=== PATIENT | male | born 1960 | race Caucasian/White ===

== ENCOUNTER 2016-06-04 08:04 | Outpatient (CLI) | payer MEDICARE, OTHER ==
--- NOTE | 2016-06-04 14:00 | Diagnostic Imaging Report ---
MARIAJOSE LAI [facility] [address] [facility] [address] [address] Report Submission Date: Jun 04, 2016 9:02:16 AM CDT Patient Study Name: YVES ROCK Date: Jun 04, 2016 8:19:11 AM CDT Modality Type: US Gender: M Description: UNILAT LTD STDY EXT VEINS : 56 Institution: [facility] Physician: MARIAJOSE LAI Venous ultrasound right lower extremity History: RIGHT LOWER EXTREMITY SWELLING AND REDNESS X 1 WEEK Multiple grayscale and color Doppler images of the right lower extremity veins are submitted Findings: No comparison studies Flow is demonstrated in the right external iliac, right common femoral, saphenous vein, deep femoral vein, femoral vein in its proximal, mid and distal aspects. Veins demonstrate compressibility. The right popliteal vein is compressible and demonstrates flow. Significant edema is noted in the soft tissues of the right calf. Flow was demonstrated in the right posterior tibial vein. Right lesser saphenous vein is also compressible and demonstrates flow. Significant soft tissue swelling and edema right posterior calf. Impression: 1.No evidence of dvt in the demonstrated venous segments of the right lower extremity. 2.Significant soft tissue swelling and edema right calf especially in the posterior aspect Electronically signed on Jun 04, 2016 9:02:16 AM CDT by: Kathy AARON
== END 2016-06-04 08:05 ==
LOC: RAD 08:04
PROVIDERS: ATTEND Family Medicine
DX: M79.89 Other specified soft tissue disorders (principal)
CPT/HCPCS: 93971